=== PATIENT | female | born 1975 | race Caucasian/White ===

== ENCOUNTER 2019-01-14 08:02 | Day surgery (SDC) | payer OTHER ==
[~2019-01-14] VITALS: Ht 152.4 cm; Wt 61.5 kg
[2019-01-14] VITALS (18 sets, daily range): BP systolic 107–125; BP diastolic 63–81; PULSE 68–94; RESP 14–24
[~2019-01-14 08:02] MED LIST: CEFAZOLIN 2 GM/50 ML (PMX) 50 ML IVPB ONE; SOD CHLORIDE 0.9% 1,000 ML IV SCH
[2019-01-14] MEDS ORDERED: ONDANSETRON 4 MG INJ IV PRN (11:30)
[2019-01-14] MEDS ORDERED: FENTAnyl 50 MCG/ML VIAL IV PRN ×3 (11:30)
[2019-01-14] MEDS ORDERED: OXYCODONE/ACETAMINOPHEN (5/325) TAB PO PRN ×2 (11:30)
[2019-01-14] MEDS ORDERED: MEPERIDINE 25 MG INJ IV PRN (11:30)
[2019-01-14] MEDS ORDERED: HYDROmorphONE 1 MG/5 ML IV SYRINGE IV PRN ×3 (11:30)
[2019-01-14] MEDS ORDERED: DIPHENHYDRAMINE 50 MG INJ IV PRN (11:30)
[2019-01-14] MEDS ORDERED: ISOSULFAN BLUE 1% 5 ML INJ SC ONE (11:53)
[2019-01-14] MEDS ORDERED: MIDAZOLAM 1 MG/ML 2 ML INJ ONE (11:58)
[2019-01-14] MEDS ORDERED: METOCLOPRAMIDE 10 MG INJ ONE (11:58)
[2019-01-14] MEDS ORDERED: PROPOFOL 200 MG INJ ONE (11:58)
[2019-01-14] MEDS ORDERED: FENTAnyl 50 MCG/ML VIAL ONE (12:01)
[2019-01-14] MEDS ORDERED: CEFAZOLIN 1 GM INJ ONE (12:01)
[2019-01-14] MEDS ORDERED: ONDANSETRON 4 MG INJ ONE (12:05)
[2019-01-14] MEDS ORDERED: HYDROmorphONE 2 MG/ML SYG ONE (12:18)
[2019-01-14] MEDS ORDERED: EPHEDrine 25 MG/5 ML SYG ONE (12:18)
[2019-01-14] MEDS ORDERED: BUPIVACAINE 0.5% 30 ML VIAL INJ ONE (13:17)
[2019-01-14] MEDS ORDERED: HYDROCODONE/APAP (5/325) TAB PO ONE (13:30)
[2019-01-14] MEDS ORDERED: BUPIVACAINE 0.25% (MPF) 30 ML INJ ONE (15:01)
== END 2019-01-14 16:15 | disposition home or self-care (01) ==
LOC: SDS 08:02
PROVIDERS: ATTEND Surgery
DX: D05.91 Unspecified type of carcinoma in situ of right breast (principal)
CPT/HCPCS: 14000; 19301; 38500; 84703; 88309; 88331; 88341; 88342; J0690; J1170; J2250; J2405; J2765; J3010; Z7512; Z7610; Q9968